=== PATIENT | female | born 1960 | race Caucasian/White ===

== ENCOUNTER → 2021-07-06 08:06 | Outpatient (CLI) | payer OTHER, SELFPAY ==
--- NOTE | 2021-07-06 | DI.US.S_ITS ---
PROCEDURE: US ABDOMEN LIMITED INDICATIONS: ABNORMAL LIVER ENZYMES TECHNIQUE: Real-time focused scanning was performed of the abdomen, with image documentation. COMPARISON: None. FINDINGS: Liver demonstrates mildly prominent size, it demonstrates normal echogenicity. The main portal vein demonstrates prominent size at 17 mm and demonstrates normal appearing, hepatopetal flow. Multiple layering shadowing gallstones are seen, with the largest measuring approximately 2 cm. The gallbladder wall is not thickened, measuring 3 mm or less. No specific pericholecystic fluid is seen. The sonographic Perry sign is negative. There is no biliary dilatation, the common bile duct measures 3 mm. No significant pancreatic abnormality is seen on these images. IMPRESSION: Normal appearing liver. Mildly prominent size of the portal vein, with normal hepatopetal flow. Numerous layering shadowing gallstones are seen, without additional sonographic signs of cholecystitis. No biliary dilatation. Dictated by: Ru Scott M.D. on 07/06/2021 at 8:20 Approved by: Ru Scott M.D. on 07/06/2021 at 8:22
== END ==
PROVIDERS: PCP Family Medicine; Referring Provider Internal Medicine Gastroenterology; Visit Provider Internal Medicine Gastroenterology
DX: R94.5 Abnormal results of liver function studies (principal); K80.20 Calculus of gallbladder without cholecystitis without obstruction
CPT/HCPCS: 76705

== ENCOUNTER → 2022-07-23 10:08 | Outpatient (CLI) | payer OTHER, SELFPAY ==
[2022-07-23 11:37] LABS: COVID19 -Nasal RAPID Negative (Negative)
== END ==
PROVIDERS: PCP Physician Assistant; Visit Provider Surgery
DX: Z01.812 Encounter for preprocedural laboratory examination (principal); Z20.822 Contact with and (suspected) exposure to COVID-19
CPT/HCPCS: 87635; C9803

== ENCOUNTER 2022-07-26 13:21 | Day surgery (SDC) | payer OTHER, SELFPAY ==
--- NOTE | 2022-07-26 | PATH_ITS ---
[facility] Accession Number: [id number] . 01 Material submitted: . colon - RANDOM COLON BIOPSIES . 01 Diagnosis: Random Colon, Biopsies: Colonic mucosa with patchy increased intraepithelial lymphocytes, suggestive of lymphocytic colitis. Negative for granulomas, dysplasia, and malignancy. MRV 07/28/2022 1326 Local . 01 Electronically signed: . Yolanda Ordaz MD, Pathologist NPI- [id number] . 01 Gross description: . RANDOM COLON BIOPSIES: Received in formalin are 3 fragment(s) of neves, soft tissue measuring 0.1 x 0.1 x 0.1 cm to 0.2 x 0.2 x 0.2 cm submitted entirely in 1 cassette(s) /JAMAAL 07/27/2022 2324 Local . 01 Pathologist provided ICD-10: R19.4, R19.7 . 01 CPT . 156460 Specimen Comment: A courtesy copy of this report has been sent to [phone] Performed at: 01 [facility] [address] [place] [address], [place], [place] [id number] MD Fuentes Chatman MD Phone: [phone]
[2022-07-26 13:56] VITALS: BP 145/87; PULSE 94; RESP 20; TEMP 36.9; O2SAT 100; BMI 21.6
[2022-07-26] MEDS: LACTATED RINGERS 1,000 ML 200 ML IV (14:09)
--- NOTE | 2022-07-26 14:21 | PM.HP.1 ---
History of Present Illness History of Present Illness Date Patient Seen: 07/26/22 Time Patient Seen: 14:21 Chief complaint: Colonoscopy Narrative: Altered bowel habit diarrhea Patient History Family & Social History Social History: household members family Tobacco & Substance use: Smoking Status Never smoker alcohol intake frequency holiday/special occasion Substance Use Type does not use Meds Home Medications and Allergies Allergies Allergy/AdvReac Type Severity Reaction Status Date / Time hydrocodone Allergy Intermediate Verified 07/26/22 13:54 oxycodone Allergy Intermediate Verified 07/26/22 13:54 codeine AdvReac Nausea Verified 07/26/22 13:55 Review of Systems Review of Systems ROS: Yes All systems reviewed with the patient and are negative except as otherwise documented Exam Vital Signs (past 8 hours): - 07/26/22 13:56 Temperature 98.5 F Pulse Rate 94 H Respiratory Rate 20 Blood Pressure 145/87 H Pulse Oximetry 100 Oxygen Delivery Method Room Air Oxygen Delivery Method Room Air Const General: cooperative HENMT Head: normal to inspection Eyes General: appearance normal, both eyes and all related structures Neck Neck: normal visual inspection Chest Chest: normal inspection of the chest Resp Effort & Inspection: normal respiratory effort Cardio Rate: regular rate GI Inspection: normal to inspection Skin General: no rashes or lesions noted Neuro General: patient alert and patient awake Extrem General: normal to inspection and no pedal edema Psych Appearance: grossly normal Assessment & Plan Assessment & Plan narrative: This is a 61-year-old female with a change in bowel habit. Diarrhea has persisted. Colonoscopy will be pursued today. Time Spent With Patient Critical Care time: I spent a total of [] minutes of critical care time on this patient's care today; this time is exclusive of procedural time.
--- NOTE | 2022-07-26 14:23 | PM.PREOP ---
Pre-operative Note COVID-19 COVID-19 status: Negative Result date/Date tested (Pos, Neg/Pending): 07/23/22 Criteria for continued procedure: Possibility delay results in more complex future surgery or treatment Interval Note History & Physical reviewed/Exam performed by Physician: Yes Changes to H&P: No ASA Class (for procedural sedation): I
[2022-07-26 15:58] VITALS: BP 98/62; PULSE 70; RESP 22; TEMP 36.2; O2SAT 100
--- NOTE | 2022-07-26 15:58 | PM.OP.COLON ---
Operative Date/Time/Diagnoses Date of procedure: 07/26/22 Time of procedure: 15:58 Pre-op diagnosis: Altered bowel habit diarrhea Post-op diagnosis: same Procedure & Clinicians Study performed: Colonoscopy with biopsies Same procedure as scheduled: Yes Indications: Altered bowel habit with diarrhea Surgeon: Joce Kiser Procedure Notes SCOAP/Timeout: Done Procedure in detail: After the risks and benefits were explained, written and verbal informed consent was obtained. The patient was brought into the procedure room and placed into the left lateral decubitus position. Please see nurse automatic car wash attendant notes for sedation details. Digital rectal examination was accomplished. The scope was introduced into the patient and advanced under direct visualization to the cecum as identified by the appendiceal orifice and ileocecal valve. The scope was slowly withdrawn to carefully examine the mucosa for any defects or lesions. Comprehensive imaging was accomplished throughout the rectum including the dentate line. The colon was decompressed, the scope was then removed from the patient who tolerated the procedure well. Pediatric colonoscope Bowel prep adequate Scope withdrawal time: 6 minutes Sedation minutes: 21 Complications: none Impression: There were some scattered diverticula in the left colon. Based on the patient's small body habitus, the colon was quite tortuous especially in the left colon rendering navigation quite challenging. The patient had evidence of grade 3 and even an element of grade 4 nonthrombosed nonbleeding hemorrhoids. I did not appreciate any evidence of proctitis nor colitis throughout. Random colon biopsies were taken for exclusion of microscopic colitis. The terminal ileum was interrogated and appeared visually normal. Endoscopic diagnosis 1. Challenging navigation 2. Mild diverticulosis 3. Grade 3 to grade 4 hemorrhoids Post-procedure Plan for aftercare: 1. Await histopathology. 2. For now fiber based bowel regimen for improved regularity is recommended. 3. Repeat colonoscopy 10 years time; sooner should symptoms warrant an earlier exam. Disposition: PACU
--- NOTE | 2022-07-26 16:03 | SUR.PHASEI ---
Received to PACU after MAC. Report received from RAIN Andrade and BECKY Davis.
[2022-07-26 16:04] VITALS: BP 87/60; PULSE 67; RESP 12; O2SAT 98
[2022-07-26 16:08] VITALS: BP 98/67; PULSE 68; RESP 16; TEMP 36.7; O2SAT 100
--- NOTE | 2022-07-26 16:08 | SUR.PHASEI ---
Glasses returned to pt.
[2022-07-26 16:13] VITALS: BP 107/70; PULSE 64; RESP 12; TEMP 36.7; O2SAT 99
[2022-07-26 16:30] VITALS: BP 119/72; PULSE 65; RESP 16; O2SAT 100
--- NOTE | 2022-07-26 16:35 | SUR.PHASEII ---
pt given discharge instructions. Pt states she understands discharge instructions. Pt to be discharged with daughter.
== END 2022-07-26 16:40 | disposition home or self-care (01) ==
PROVIDERS: PCP Physician Assistant; Referring Provider Internal Medicine Gastroenterology; Visit Provider Internal Medicine Gastroenterology
PROC: 0DJD8ZZ Inspection of Lower Intestinal Tract, Via Natural or Artificial Opening Endoscopic (ICD-10-PCS; CPT 45378; principal; 2022-07-26 14:30)
DX: R19.7 Diarrhea, unspecified (principal); K57.30 Diverticulosis of large intestine without perforation or abscess without bleeding; K64.2 Third degree hemorrhoids
CPT/HCPCS: 45378; J2704